=== PATIENT | male | born 1975 | race Two or more races ===

== ENCOUNTER 2024-06-21 14:33 | Inpatient (IN) | payer MEDICAID, OTHER ==
[~2024-06-21] VITALS: Ht 170.2 cm; Wt 101.8 kg
[2024-06-21 15:01] LABS: Basophils # (auto) 0 10 ^3/uL (0-0.2); Basophils % (auto) 0.6 % (0.0-2.0); Eosinophils # (auto) 0 10 ^3/uL (0-0.8); Eosinophils % (auto) 0.6 % (0.0-7.0); Hematocrit 43.9 % (41.0-53.0); Hemoglobin 15.5 g/dL (13.5-17.5); Lymphocytes # (auto) 1.8 10 ^3/uL (0.4-5.4); Mean Corpuscular Hgb Conc. 35.3 g/dL (32.0-36.0); Mean Corpuscular Volume 87.9 fL (80.0-100.0); Monocytes # (auto) 0.4 10 ^3/uL (0-1.3); Monocytes % (auto) 6.5 % (0.0-12.0); Neutrophils # (auto) 4.5 10 ^3/uL (1.6-8.6); Neutrophils % (auto) 66.3 % (37.0-80.0); Nucleated Red Blood Cells % 0.1 %; Platelet Count (auto) 173 10^3/uL (140-450); Red Cell Distribution Width 12.9 % (11.8-14.3); White Blood Cell 6.8 10^3/uL (4.4-10.8)
[2024-06-21 15:18] LABS: Chloride 104 mmol/L (98-107); Potassium 3.2 mmol/L (3.5-5.1); Sodium 138 mmol/L (136-145)
[2024-06-21 15:19] LABS: Anion Gap 8 (5-15); Calcium 9.3 mg/dL (8.7-10.4); Carbon Dioxide 26 mmol/L (20-30)
[2024-06-21 15:24] LABS: Blood Urea Nitrogen 8 mg/dL (9-23); Glucose 91 mg/dL (74-106); Lipase 49 U/L (12-53)
[2024-06-21] MEDS: POTASSIUM EFFERVESENT TAB 25 MEQ PO ONE (16:22)
[2024-06-21] MEDS: ASPirin 325 MG TAB PO ONE (16:22)
[2024-06-21] MEDS: NITROGLYCERIN 0.4 MG SL TAB SL ONE (16:27)
[2024-06-22] MEDS ORDERED: ONDANSETRON HCL 4 MG/2 ML VIAL IV PRN (06:45)
[2024-06-22] MEDS ORDERED: MORPHINE SULFATE INJ 2 MG/ml SYRG IV PRN (06:45)
[2024-06-22] MEDS ORDERED: NITROGLYCERIN 0.4 MG SL TAB SL PRN (06:45)
[2024-06-22] MEDS ORDERED: DEXTROSE (50%) 50ML SYRG IV PRN (06:45)
[2024-06-22] MEDS: InsuLIN REG 1unit/0.01ml Soln (100units/ml) SC SCH (07:00)
[2024-06-22] MEDS: ACCU-CHEK COMFORT CURVE STRIP VI SCH (07:16)
[2024-06-22 07:24] LABS: Chloride 105 mmol/L (98-107); Sodium 140 mmol/L (136-145)
[2024-06-22 07:25] LABS: Anion Gap 5 (5-15); Carbon Dioxide 30 mmol/L (20-30)
[2024-06-22 07:26] LABS: Calcium 9.2 mg/dL (8.7-10.4)
[2024-06-22 07:30] LABS: Glucose 116 mg/dL (74-106)
[2024-06-22 07:31] LABS: BUN/Creatinine Ratio 11.5 (10.0-20.0); Blood Urea Nitrogen 10 mg/dL (9-23)
[2024-06-22 08:19] VITALS: RESP 10; O2SAT 96
[2024-06-22 09:04] LABS: Magnesium 2.2 mg/dL (1.6-2.6)
[2024-06-22 09:30] VITALS: PULSE 68; RESP 20; O2SAT 98
[2024-06-22] MEDS ORDERED: METF-370 PO (09:41)
[2024-06-22] MEDS ORDERED: AMLO1TAB22 PO (09:41)
[2024-06-22] MEDS ORDERED: CHOL20002 PO (09:41)
[2024-06-22] MEDS ORDERED: DULO1CAP5 PO (09:41)
[2024-06-22] MEDS ORDERED: METO25TA93 PO (09:41)
[2024-06-22] MEDS ORDERED: ASPI1CHW5 PO (09:41)
[2024-06-22] MEDS ORDERED: ATOR40TA52 PO (09:41)
[2024-06-22] MEDS: amLODIPine BESYLATE 5 MG TAB PO SCH (10:01)
[2024-06-22] MEDS: DULoxetine HCL 30 MG CAP PO SCH (10:01)
[2024-06-22] MEDS: METOPROLOL SUCCINATE XL 50 MG TAB PO SCH (10:02)
[2024-06-22 13:00] VITALS: BP 142/91; PULSE 71; RESP 18; TEMP 98.4; O2SAT 97
[2024-06-22 16:43] VITALS: BP 126/86; PULSE 68; RESP 18; TEMP 98.7; O2SAT 96
[2024-06-22 20:00] VITALS: PULSE 67; RESP 18; O2SAT 95
[2024-06-22] MEDS: ACETAMINOPHEN 325 MG TAB PO PRN (20:36)
[2024-06-22 21:00] VITALS: BP 133/77; PULSE 67; RESP 18; TEMP 98.4; O2SAT 95
[2024-06-22] MEDS: ATORVASTATIN 20 MG TAB PO SCH (22:11)
[2024-06-23] VITALS (7 sets, daily range): BP systolic 103–130; BP diastolic 57–83; PULSE 55–72; RESP 17–19; TEMP 97.6–98.9; O2SAT 96–97
[2024-06-23] MEDS: ADENOSINE 86 MG in GIVE UN-DILUTED 0 ML IV STA (09:13)
[2024-06-23] MEDS: ASPirin 81 mg TAB PO SCH (10:05)
== END 2024-06-23 19:43 | disposition home or self-care (01) | DRG 203 ==
LOC: ER 14:33 → TELE 06-22 06:38 → TELE-E-ADS 06-22 08:39
PROVIDERS: ADMIT Nurse Practitioner; ATTEND Nurse Practitioner Acute Care
DX: R07.9 Chest pain, unspecified (principal); E11.9 Type 2 diabetes mellitus without complications; E66.9 Obesity, unspecified; E78.5 Hyperlipidemia, unspecified; F17.200 Nicotine dependence, unspecified, uncomplicated; I10 Essential (primary) hypertension; Z79.84 Long term (current) use of oral hypoglycemic drugs; Z83.3 Family history of diabetes mellitus; Z90.49 Acquired absence of other specified parts of digestive tract; Z79.82 Long term (current) use of aspirin; Z79.899 Other long term (current) drug therapy; Z68.34 Body mass index [BMI] 34.0-34.9, adult
CPT/HCPCS: 36415; 71046; 78452; 80048; 80061; 82962; 83036; 83690; 83735; 84443; 84484; 85025; 93005; 93017; 93306; 99291; G0378; J0153; J1815

== ENCOUNTER 2025-01-19 07:35 | Emergency (ER) | payer MEDICAID ==
[~2025-01-19] VITALS: Ht 170.2 cm; Wt 96.0 kg
[~2025-01-19 07:35] MED LIST: AMLO1TAB22 PO; ASPI1CHW5 PO; ATOR40TA52 PO; CHOL20002 PO; DULO1CAP5 PO; METF-370 PO; METO25TA93 PO
--- NOTE | 2025-01-19 07:47 | ED.PDOC ---
History of Present Illness HPI Comments 49 y/o M, with PMHX of HTN, HLD, and DM presents to the ED for CC of left sided weakness. Patient states, that he has been experiencing left sided arm and leg weakness with associated shortness of breath since 0300 this morning (01/19/25). Patient relays, new onset symptoms of nausea, headache, and chest pain upon arrival to the ED. Patient complains of current 7/10 chest pain. Patient comments on, believing he passed out but cannot recall events. Patient denies fatigue, head injury, dizziness, vomiting, or diarrhea. No other associated symptoms, modifiers, recent injuries or sick contacts at this time. Chief Complaint: Left Sided Weakness Time Seen by MD: 07:46 Primary Care Provider: KATY Reviewed Notes: Nurses Notes, Medications, Allergies Allergies: Coded Allergies: NO KNOWN ALLERGIES (Unverified , 06/21/24) Home Meds Reported Medications Cholecalciferol (VITAMIN D3) 2,000 Unit Tab, 1 CAP PO DAILY 06/22/24 Duloxetine HCl (Duloxetine HCl) 30 Mg Cap, 1 CAP PO DAILY 06/22/24 Metformin Hydrochloride (Metformin Hcl) 500 Mg Tab, 1 TAB PO BID 06/22/24 Aspirin (Chewable Aspirin) 81 Mg Chw, 1 TAB PO DAILY 06/22/24 Metoprolol Succinate (Metoprolol Succinate Er) 25 Mg Tab, 1 TAB PO DAILY 06/22/24 Atorvastatin Calcium (ATORVASTATIN CALCIUM) 40 Mg Tab, 1 TAB PO 06/22/24 Amlodipine Besylate (Amlodipine Besylate) 5 Mg Tab, 1 TAB PO DAILY 06/22/24 Information Source: Patient Mode of Arrival: Ambulatory Severity: Moderate Timing: Hours Duration: Since onset Prehospital treatment: None Past Medical History PAST MEDICAL HISTORY: DM, High Lipids, HTN Surgical History: Appendectomy Family History Family History: Reviewed,noncontributory to illness Social History Smoker: Cigarettes Alcohol: Occasionally Drugs: Denies Drug Use Lives In: Home Constitutional: reports: weakness; denies: chills, diaphoresis, fatigue, fever, malaise, sweats, others EENTM: denies: blurred vision, double vision, ear bleeding, ear discharge, ear drainage, ear pain, ear ringing, eye pain, eye redness, hearing loss, mouth pain, mouth swelling, nasal discharge, nose bleeding, nose congestion, nose ya n, photophobia, tearing, throat pain, throat swelling, voice changes, others Respiratory: denies: cough, hemoptysis, orthopnea, SOB at rest, shortness of breath, SOB with excertion, stridor, wheezing, others Cardiovascular: reports: chest pain, left arm pain; denies: dizzy spells, diaphoresis, Dyspnea on exertion, edema, irregular heart beat, lightheadedness, palpitations, PND, syncope, others Gastrointestinal: reports: nausea; denies: abdomen distended, abdominal pain, blood streaked bowels, constipated, diarrhea, dysphagia, difficulty swallowing, hematemesis, melena, poor appetite, poor fluid intake, rectal bleeding, rectal pain, vomiting, others Genitourinary: denies: burning, dysuria, flank pain, frequency, hematuria, incontinence, penile discharge, penile sore, pain, testicle pain, testicle swelling, urgency, others Neurological: reports: headache; denies: dizziness, fainting, left sided numbness, left sided weakness, numbness, paresthesia, pre-existing deficit, right sided numbness, right sided weakness, seizure, speech problems, tingling, tremors, weakness, others Musculoskeletal: denies: back pain, gout, joint pain, joint swelling, muscle pain, muscle stiffness, neck pain, others Integumetry: denies: bruises, change in color, change in hair/nails, dryness, laceration, lesions, lumps, rash, wounds, others Allergic/Immunocompromised: denies: Difficulty Healing, Frequent Infections, Hives, Itching, others Hematologic/Lymphatic: denies: anemia, blood clots, easy bleeding, easy brui sing, swollen glands, others Endocrine: denies: excessive hunger, excessive sweating, excessive thirst, ex cessive urination, flushing, intolerance to cold, intolerance to heat, unexplained weight gain, unexplained weight loss, others Psychiatric: denies: anxiety, bipolar disorder, depression, hopeless, panic disorder, schizophrenia, sleepless, suicidal, others All Other Systems: Reviewed and Negative Physical Exam General Appearance: Moderate Distress HEENT: Normal ENT Inspection, Pharynx Normal, TMs Normal Neck: Full Range of Motion, Non-Tender, Normal, Normal Inspection Respiratory: Chest Non-Tender, Lungs Clear, No Accessory Muscle Use, No Respiratory Distress, Normal Breath Sounds Cardiovascular: No Edema, No JVD, No Murmur, No Gallop, Normal Peripheral Pulses, Regular Rate/Rhythm Breast Exam: Deferred Gastrointestinal: No Organomegaly, Non Tender, No Pulsatile Mass, Normal Bowel Sounds, Soft Genitalia: Deferred Pelvic: Deferred Rectal: Deferred Extremities: No calf tenderness, Normal capillary refill, Normal inspection, Normal range of motion, Non-tender, No pedal edema Musculoskeletal : Apperance: Normal Neurologic: Alert, billet shearer II-XII nml as Tested, No Motor Deficits, Normal Affect, Normal Mood, No Sensory Deficits Cerebellar Function: Normal Reflexes: Normal Skin: Dry, Normal Color, Warm Peripheral Pulses: 3+ Radial (R), 3+ Radial (L) Lymphatic: No Adenopathy Was a procedure done? Was a procedure done?: No Differential Dx Considerations may include: TIA Electrolyte imbalance X-Ray, Labs, Meds, VS Vital Signs Date Time Temp Pulse Resp B/P (MAP) Pulse Ox O2 Delivery O2 Flow Rate FiO2 01/19/25 12:00 98.3 69 14 132/89 (103) 98.3 01/19/25 11:00 68 13 144/65 (91) 01/19/25 10:36 66 15 126/82 01/19/25 10:00 80 15 128/84 (99) 94 01/19/25 09:37 81 12 133/85 01/19/25 08:30 98.5 98.5 01/19/25 08:30 80 15 128/84 (99) 94 01/19/25 08:15 79 17 95 Room Air* 0 21 01/19/25 08:00 133/85 01/19/25 07:48 98.1 92 17 141/115 (124) 99 98.1 01/19/25 07:46 110 Lab Test 01/19/25 11:07 01/19/25 11:00 01/19/25 08:55 01/19/25 08:03 Range/Units Troponin I High Sensitivity 4 4 5 </=54 ng/L Urine Color Light-yellow Yellow Urine Clarity Clear Clear Urine pH 7.0 5.0-9.0 Urine Specific [place] 1.038 H 1.001-1.035 Urine Protein Negative Negative Urine Ketones Negative Negative Urine Blood Negative Negative /uL Urine Nitrite Negative Negative Urine Bilirubin Negative Negative Urine Urobilinogen Normal Negative mg/dL Urine Leukocyte Esterase Negative Negative /uL Urine RBC 2 0 - 3 /hpf Urine Microscopic WBC 1 0-3 /HPF Urine Squamous Epithelial Cells Few <5 /hpf Urine Bacteria None seen None Seen /hpf Urine Glucose Normal Normal mg/dL White Blood Count 7.9 4.4-10.8 10^3/uL Red Blood Count 5.37 4.5-5.90 10^6/uL Hemoglobin 16.4 13.5-17.5 g/dL Hematocrit 47.5 41.0-53.0 % Mean Corpuscular Volume 88.4 80.0-100.0 fL Mean Corpuscular Hemoglobin 30.6 28.0-32.0 pg Mean Corpuscular Hemoglobin Concent 34.6 32.0-36.0 g/dL Red Cell Distribution Width 13.3 11.8-14.3 % Platelet Count 176 140-450 10^3/uL Mean Platelet Volume 9.2 6.9-10.8 fL Neutrophils (%) (Auto) 73.7 37.0-80.0 % Lymphocytes (%) (Auto) 18.6 10.0-50.0 % Monocytes (%) (Auto) 6.7 0.0-12.0 % Eosinophils (%) (Auto) 0.7 0.0-7.0 % Basophils (%) (Auto) 0.3 0.0-2.0 % Neutrophils # (Auto) 5.8 1.6-8.6 10 ^3/uL Lymphocytes # (Auto) 1.5 0.4-5.4 10 ^3/uL Monocytes # (Auto) 0.5 0-1.3 10 ^3/uL Eosinophils # (Auto) 0.1 0-0.8 10 ^3/uL Basophils # (Auto) 0 0-0.2 10 ^3/uL Nucleated Red Blood Cells 0.2 % Sodium Level 139 136-145 mmol/L Potassium Level 3.3 L 3.5-5.1 mmol/L Chloride Level 102 98-107 mmol/L Carbon Dioxide Level 27 20-31 mmol/L Anion Gap 10 5-15 Blood Urea Nitrogen 9 9-23 mg/dL Creatinine 0.91 0.700-1.30 mg/dL Glomerular Filtration Rate Calc 103 >90 mL/min BUN/Creatinine Ratio 9.9 L 10.0-20.0 Serum Glucose 148 H 74-106 mg/dL Calcium Level 9.8 8.7-10.4 mg/dL Test 01/19/25 07:39 Range/Units POC Glucose 143 H 70-106 mg/dl Current Medications Medications (Trade) Dose Ordered Sig/Gerardo Route Start Time Stop Time Status Last Admin Sodium Chloride 1,000 ml @ 150 mls/hr Q6H40M ONCE IV 01/19/25 08:00 01/19/25 13:19 DC 01/19/25 09:39 Morphine Sulfate 4 mg ONCE ONCE IV 01/19/25 08:00 01/19/25 08:01 DC 01/19/25 09:37 Ondansetron HCl (Zofran) 4 mg ONCE ONCE IV 01/19/25 08:00 01/19/25 08:01 DC 01/19/25 09:36 [place] [id number] Ph: [phone] DIAGNOSTIC IMAGING Diagnostic Imaging Report : [id number] Signed PATIENT: SUSHMA BROCT: [id number] UNIT: [id number] : 1975 LOC: ER ROOM / BED: / AGE / SEX: 49 / M ADM STATUS: REG ER SERVICE ORDERING PHYSICIAN: PETER GONZALEZ MD PROCEDURE(s): CXRP - CHEST PORTABLE REASON: sob ORDER NUMBER(s): [id number], ACCESSION NUMBER(s): [id number] EXAM: XY CHEST PORTABLE Indication: sob Technique: Single frontal view of the chest was obtained Comparison: None FINDINGS: Lines and Tubes: None Lungs: No focal consolidation. Pleura: No effusion. No pneumothorax. Cardiomediastinal contours: Unremarkable Bones: No acute osseous abnormality. IMPRESSION: No acute cardiopulmonary disease. ATED BY: KAILEE BRYAN MD DICTATED DATE/TIME: 01/19/25819 SIGNED BY: KAILEE BRYAN MD SIGNED DATE/TIME: 01/19/25819 CC: [place] [id number] Ph: [phone] DIAGNOSTIC IMAGING Diagnostic Imaging Report : [id number] Signed PATIENT: JENNIFER BRO: [id number] UNIT: [id number] : 1975 LOC: ER ROOM / BED: / AGE / SEX: 49 / M ADM STATUS: REG ER SERVICE ORDERING PHYSICIAN: PETER GONZALEZ MD PROCEDURE(s): CTH - STROKE CTH REASON: tia ORDER NUMBER(s): [id number], ACCESSION NUMBER(s): [id number] CLINICAL INFORMATION: Transient ischemic attack. TECHNIQUE: Axial imaging was obtained through the brain without contrast. Coronal and sagittal reformatted images were obtained, reviewed, and stored. Images were reviewed in brain and bone windows. All CT scans at this medical facility are performed using dose modulation techniques as appropriate to a performed exam including the following: Automated exposure control was utilized; adjustment of the MA and/or KV according to patient size; and use of iterative reconstruction technique. CTDIvol = 69.49 mGy DLP = 1368.97 mGy-cm COMPARISON: None FINDINGS: There is no acute intracranial hemorrhage. There is a vascular structure coursing through the amilcar caudal aspect of the midbrain, possible vascular malformation. No mass effect or midline shift. The ventricles and sulci are within normal limits in size for age. Basal cisterns are patent. The calvarium is unremarkable. Paranasal sinuses and mastoid air cells are clear. IMPRESSION: 1. Vascular structure coursing through the amilcar and caudal aspect of the midbrain, possible vascular malformation. Correlate with clinical findings. MRI recommended to further evaluate. CTA may also be helpful to better characterize this finding 2. Otherwise, no CT evidence of acute intracranial abnormality. Critical findings Critical Result: Stroke Alert, possible vacular malformation Findings discussed with the scrap char[employer] by Dr. Ibrahim by phone, at 01/19/2025 10:26 AM CDT, and acknowledged receipt and understanding of the findings. .. ATED BY: CHAD IBRAHIM DO DICTATED DATE/TIME: 01/19/25826 SIGNED BY: CHAD IBRAHIM DO SIGNED DATE/TIME: 01/19/25826 CC: Patient alert. Complaining of numbness tingling headache dizziness. He also has chest discomfort. Vitals stable. Answering all questions. Blood pressure elevated. Blood sugar elevated. Has risk factors for coronary artery disease. Possible TIA. Reviewed his history. Explained to the patient. Continue cardiac monitoring. EKG reviewed does not show any acute changes. Time of 1ST Reevaluation: 08:16 Reevaluation 1ST: Unchanged Patient Education/Counseling: Diagnosis, Treatment Family Education/Counseling: No Family Present Departure 1 Departure Time of Disposition: 07:57 Impression: Primary Impression: TIA (transient ischemic attack) Additional Impressions: Hypertensive emergency Uncontrolled diabetes mellitus Qualified Codes: E13.65 - Other specified diabetes mellitus with hyperglycemia Chest pain of unknown etiology Disposition: ADMITTED INPATIENT Admit to: Med Surg Condition: Guarded Critical Care Note Critical Care Time?: Yes (90 min-critical care time only) Critical care comment: Continue monitoring chest pain neurological status Stability Stability form required: No Heart Score Heart Score: Heart Score Response (Comments) Value History Slightly Suspicious 0 EKG Normal 0 Age 45-64 1 Risk Factors >3 or Hx ASHD 2 Troponin Normal limit 0 Total 3 I personally scribed for PETER GONZALEZ MD ([email or web address]) on 01/19/25 at 07:47. Electronically submitted by Kamila Velásquez ([email or web address]). I personally scribed for PETER GONZALEZ MD ([email or web address]) on 01/19/25 at 07:54. Electronically submitted by Kamila Velásquez ([email or web address]). I personally scribed for PETER GONZALEZ MD ([email or web address]) on 01/19/25 at 08:27. Electronically submitted by Kamila Velásquez ([email or web address]). I personally scribed for PETER GONZALEZ MD ([email or web address]) on 01/19/25 at 09:05. Electronically submitted by Kamila Velásquez ([email or web address]). PETER GONZALEZ MD Jan 19, 2025 07:47
[2025-01-19] MEDS: cloNIDine HCL 0.1 MG TAB PO ONE (08:00)
[2025-01-19 08:15] VITALS: PULSE 79; RESP 17; O2SAT 95
--- NOTE | 2025-01-19 08:23 | DVH ---
EXAM: XY CHEST PORTABLE Indication: sob Technique: Single frontal view of the chest was obtained Comparison: None FINDINGS: Lines and Tubes: None Lungs: No focal consolidation. Pleura: No effusion. No pneumothorax. Cardiomediastinal contours: Unremarkable Bones: No acute osseous abnormality. IMPRESSION: No acute cardiopulmonary disease.
[2025-01-19 08:25] LABS: Basophils # (auto) 0 10 ^3/uL (0-0.2); Basophils % (auto) 0.3 % (0.0-2.0); Eosinophils # (auto) 0.1 10 ^3/uL (0-0.8); Eosinophils % (auto) 0.7 % (0.0-7.0); Hematocrit 47.5 % (41.0-53.0); Hemoglobin 16.4 g/dL (13.5-17.5); Lymphocytes # (auto) 1.5 10 ^3/uL (0.4-5.4); Lymphocytes % (auto) 18.6 % (10.0-50.0); Mean Corpuscular Hemoglobin 30.6 pg (28.0-32.0); Mean Corpuscular Hgb Conc. 34.6 g/dL (32.0-36.0); Mean Corpuscular Volume 88.4 fL (80.0-100.0); Monocytes # (auto) 0.5 10 ^3/uL (0-1.3); Monocytes % (auto) 6.7 % (0.0-12.0); Neutrophils # (auto) 5.8 10 ^3/uL (1.6-8.6); Neutrophils % (auto) 73.7 % (37.0-80.0); Nucleated Red Blood Cells % 0.2 %; Platelet Count (auto) 176 10^3/uL (140-450); Red Blood Cells 5.37 10^6/uL (4.5-5.90); Red Cell Distribution Width 13.3 % (11.8-14.3); White Blood Cell 7.9 10^3/uL (4.4-10.8)
--- NOTE | 2025-01-19 08:29 | DVH ---
CLINICAL INFORMATION: Transient ischemic attack. TECHNIQUE: Axial imaging was obtained through the brain without contrast. Coronal and sagittal reform atted images were obtained, reviewed, and stored. Images were reviewed in brain and bone windows. Al l CT scans at this medical facility are performed using dose modulation techniques as appropriate to a performed exam including the following: Automated exposure control was utilized; adjustment of the MA and/or KV according to patient size; and use of iterative reconstruction technique. CTDIvol = 69.4 9 mGy DLP = 1368.97 mGy-cm COMPARISON: None FINDINGS: There is no acute intracranial hemorrhage. There is a vascular structure coursing through t he amilcar caudal aspect of the midbrain, possible vascular malformation. No mass effect or midline shif t. The ventricles and sulci are within normal limits in size for age. Basal cisterns are patent. The calvarium is unremarkable. Paranasal sinuses and mastoid air cells are clear. IMPRESSION: 1. Vascular structure coursing through the amilcar and caudal aspect of the midbrain, possible vascular malformation. Correlate with clinical findings. MRI recommended to further evaluate. CTA may also be helpful to better characterize this finding 2. Otherwise, no CT evidence of acute intracranial abnormality. Critical findings Critical Result: Stroke Alert, possible vacular malformation Findings discussed with the battery [employer]ger [employer] by Dr. Ibrahim by phone, at 01/19/2025 10:26 AM CDT, and acknowledged receipt and understanding of the findings. ..
[2025-01-19 08:32] LABS: Chloride 102 mmol/L (98-107); Sodium 139 mmol/L (136-145)
[2025-01-19 08:34] LABS: Anion Gap 10 (5-15); Calcium 9.8 mg/dL (8.7-10.4); Carbon Dioxide 27 mmol/L (20-31); Potassium 3.3 mmol/L (3.5-5.1)
[2025-01-19 08:38] LABS: BUN/Creatinine Ratio 9.9 (10.0-20.0); Blood Urea Nitrogen 9 mg/dL (9-23)
[2025-01-19 08:39] LABS: Glucose 148 mg/dL (74-106)
[2025-01-19] MEDS: ONDANSETRON HCL 4 MG/2 ML VIAL IV ONE (09:36)
[2025-01-19] MEDS: MORPHINE SULFATE 4 MG/ML SYR/VIAL IV ONE (09:37)
[2025-01-19] MEDS: SODIUM CHLORIDE 0.9% 1,000 ML IV ONE (09:39)
[2025-01-19] MEDS: IOHEXOL 350 MG/ML 100ML IJ ONE (09:43)
[2025-01-19] MEDS: ASPirin 325 MG TAB PO ONE (09:51)
[2025-01-19 10:00] VITALS: O2SAT 94
--- NOTE | 2025-01-19 10:37 | DVH ---
Procedure: CT ANGIO HEAD/Neck HISTORY: stroke, AVM Comparison Study: CT head 01/19/2025. Exam Date:01/19/2025 10:02 AM TECHNIQUE: CTA head without and with intravenous contrast. CTA neck with intravenous contrast. 3D [employer] postprocessing was performed and images were used for interpretation and reporting. 100 cc of Omni paque 300 contrast was injected intravenously. All CT scans at this medical facility are performed using dose modulation techniques as appropriate t o a performed exam including the following: Automated exposure control was utilized; adjustment of th e MA and/or KV according to patient size; and use of iterative reconstruction technique. Radiation Dose : CT Dose: CTDI volume is 22 mGy. Dose-length product is 900 mGy*cm FINDINGS: CTA head: The visualized distal internal carotid, anterior and middle cerebral arteries demonstrate normal [place] without hemodynamically significant stenosis or occlusion. The vertebral, basilar, and posterior cerebral arteries also demonstrate normal caliber without hemod ynamically significant stenosis or occlusion. There is a vascular structure which courses through the amilcar and communicates with small perforating branches in the cerebellum and a vessel coursing along the lateral margins of the left amilcar. There is no evidence of intracranial arterial aneurysm. The early parenchymal enhancement is grossly unremarkable. There is no hydrocephalus or extra-axial f luid collection. CTA neck: The visualized thoracic aortic arch and proximal great vessels are unremarkable. The bilateral common, internal and external carotid arteries are patent without hemodynamically signi ficant stenosis. The cervical segments of the right and left vertebral arteries are patent without flow-limiting steno sis or obvious dissection.. Neck soft tissues appear within normal limits. Lung apices are clear. There is no acute osseous abnor mality. IMPRESSION: 1. No hemodynamically significant stenosis, proximal occlusion or aneurysm in the intracranial arteri es. 2. No hemodynamically significant stenosis in the cervical segments of the carotid and vertebral tyson preeti. 3. Nonspecific vascular structure coursing through the amilcar and communicating with small perforating branches in the cerebellum and a vessel coursing along the lateral margins of the left amilcar. This may represent a aberrant vessel or vascular malformation. HS:Y
[2025-01-19 11:44] LABS: Urine Blood Negative /uL (Negative); Urine Clarity Clear (Clear); Urine Color Light-Yellow (Yellow); Urine Protein, UAD Negative (Negative); Urine Specific Gravity 1.038 (1.001-1.035); Urine Squamous Epithelial Cell FEW /hpf (<5); Urine Urobilinogen Normal (Negative); Urine WBC 1 /HPF (0-3)
[2025-01-19 12:00] VITALS: BP 132/89; PULSE 69; RESP 14; TEMP 98.3
[2025-01-19 12:15] LABS: Urine Bacteria None Seen /hpf (None Seen)
== END 2025-01-19 12:47 | disposition left against medical advice (07) ==
LOC: ER 07:35
DX: G45.9 Transient cerebral ischemic attack, unspecified (principal); I16.1 Hypertensive emergency; E11.65 Type 2 diabetes mellitus with hyperglycemia; E78.5 Hyperlipidemia, unspecified; F17.210 Nicotine dependence, cigarettes, uncomplicated; Z90.49 Acquired absence of other specified parts of digestive tract; Z79.82 Long term (current) use of aspirin; Z79.84 Long term (current) use of oral hypoglycemic drugs; Z79.899 Other long term (current) drug therapy
CPT/HCPCS: 36415; 70450; 70496; 70498; 71045; 80048; 81001; 82962; 84484; 85025; 96361; 96374; 96375; 99291; 99292; J2270; J2405; J7030; Q9967

== ENCOUNTER 2025-03-01 11:51 | Emergency (ER) | payer MEDICAID ==
[~2025-03-01] VITALS: Ht 170.2 cm; Wt 95.9 kg
[2025-03-01 12:06] VITALS: BP 156/92; PULSE 107; RESP 20; TEMP 99.5; O2SAT 96
== END 2025-03-01 15:34 | disposition left against medical advice (07) ==
LOC: ER 11:51
DX: Z48.00 Encounter for change or removal of nonsurgical wound dressing (principal); Z53.21 Procedure and treatment not carried out due to patient leaving prior to being seen by health care provider

== ENCOUNTER 2025-03-10 04:33 | Emergency (ER) | payer MEDICAID ==
[~2025-03-10] VITALS: Ht 170.2 cm; Wt 90.9 kg
--- NOTE | 2025-03-10 05:09 | ED.PDOC ---
History of Present Illness HPI Comments 50 y/o obese M, with a history of DM, HLD, HTN, and tobacco abuse, presents with c/o shortness of breath, left-arm numbness and tingling, and dizziness. Patient is a Yi speaker. Upon arrival to ED triage, patient had a sudden syncopal episode with fall and injury, that was witnessed by ED staff. At time of assessment after coming-to and being placed on a gurney, patient comments on having no recollection of passing out. Endorses no further additional symptoms along with any recent significant event, such as previous injuries, sick contact, or travel. Chief Complaint: Shortness of Breath Time Seen by MD: 04:40 Primary Care Provider: FrederickOA Reviewed Notes: Nurses Notes, Medications, Allergies Allergies: Coded Allergies: NO KNOWN ALLERGIES (Unverified , 06/21/24) Home Meds Reported Medications Cholecalciferol (VITAMIN D3) 2,000 Unit Tab, 1 CAP PO DAILY 06/22/24 Duloxetine HCl (Duloxetine HCl) 30 Mg Cap, 1 CAP PO DAILY 06/22/24 Metformin Hydrochloride (Metformin Hcl) 500 Mg Tab, 1 TAB PO BID 06/22/24 Aspirin (Chewable Aspirin) 81 Mg Chw, 1 TAB PO DAILY 06/22/24 Metoprolol Succinate (Metoprolol Succinate Er) 25 Mg Tab, 1 TAB PO DAILY 06/22/24 Atorvastatin Calcium (ATORVASTATIN CALCIUM) 40 Mg Tab, 1 TAB PO 06/22/24 Amlodipine Besylate (Amlodipine Besylate) 5 Mg Tab, 1 TAB PO DAILY 06/22/24 Past Medical History PAST MEDICAL HISTORY: DM, High Lipids, HTN Surgical History: Appendectomy Family History Family History: Reviewed,noncontributory to illness Social History Smoker: Cigarettes Alcohol: Occasionally Drugs: Denies Drug Use Lives In: Home All Other Systems: Reviewed and Negative (Comprehensive systems review obtained and negative except for what is stated in the HPI.) Physical Exam General Appearance: Mild Distress, Obese HEENT: Normal ENT Inspection, Pharynx Normal, TMs Normal Neck: Full Range of Motion, Non-Tender, Normal, Normal Inspection Respiratory: Chest Non-Tender, Lungs Clear, No Accessory Muscle Use, No Respiratory Distress, Normal Breath Sounds Cardiovascular: No Edema, No JVD, No Murmur, No Gallop, Normal Peripheral Pulses, Regular Rate/Rhythm Breast Exam: Deferred Gastrointestinal: No Organomegaly, Non Tender, No Pulsatile Mass, Normal Bowel Sounds, Soft Genitalia: Deferred Pelvic: Deferred Rectal: Deferred Extremities: No calf tenderness, Normal capillary refill, Normal inspection, Normal range of motion, Non-tender, No pedal edema Musculoskeletal : Apperance: Normal Neurologic: Alert, life enrichment specialist II-XII nml as Tested, No Motor Deficits, No Sensory Deficits, Other (anxious affect ) Cerebellar Function: Normal Reflexes: Normal Skin: Dry, Normal Color, Warm Lymphatic: No Adenopathy Was a procedure done? Was a procedure done?: No Differential Dx Considerations may include: Viral syndrome, URI, PNA, MO, PE, ACS, vasovagal response, hypotension, dehydration, electrolyte imbalance, closed head injury, fractures, intracranial bleed, among others X-Ray, Labs, Meds, VS Vital Signs Date Time Temp Pulse Resp B/P (MAP) Pulse Ox O2 Delivery O2 Flow Rate FiO2 03/10/25 04:44 93 03/10/25 04:40 98.6 108 18 136/84 (101) 97 98.6 03/10/25 04:40 97 Room Air* 0 21 Lab Test 03/10/25 05:23 Range/Units White Blood Count Pending Red Blood Count Pending Hemoglobin Pending Hematocrit Pending Mean Corpuscular Volume Pending Mean Corpuscular Hemoglobin Pending Mean Corpuscular Hemoglobin Concent Pending Red Cell Distribution Width Pending Platelet Count Pending Mean Platelet Volume Pending Neutrophils (%) (Auto) Pending Lymphocytes (%) (Auto) Pending Monocytes (%) (Auto) Pending Basophils (%) (Auto) Pending Neutrophils # (Auto) Pending Lymphocytes # (Auto) Pending Monocytes # (Auto) Pending Sodium Level 140 136-145 mmol/L Potassium Level 2.7 L 3.5-5.1 mmol/L Chloride Level 106 98-107 mmol/L Carbon Dioxide Level 26 20-31 mmol/L Anion Gap 8 5-15 Blood Urea Nitrogen 6 L 9-23 mg/dL Creatinine 0.74 0.700-1.30 mg/dL Glomerular Filtration Rate Calc 110 >90 mL/min BUN/Creatinine Ratio 8.1 L 10.0-20.0 Serum Glucose 110 H 74-106 mg/dL Calcium Level 8.8 8.7-10.4 mg/dL Total Bilirubin 0.6 0.2-1.0 mg/dL Aspartate Amino Transferase (AST) 13 13-40 U/L Alanine Aminotransferase (ALT) 20 7-40 U/L Alkaline Phosphatase 82 46-116 U/L Troponin I High Sensitivity 11 </=54 ng/L Total Protein 6.7 5.7-8.2 g/dL Albumin 4.4 3.2-4.8 g/dL [place] [id number] Ph: [phone] DIAGNOSTIC IMAGING Diagnostic Imaging Report : [id number] Signed PATIENT: JEREMY BRO ACCT: [id number] UNIT: [id number] : 1975 LOC: ER ROOM / BED: / AGE / SEX: 50 / M ADM STATUS: REG ER SERVICE [id number] ORDERING PHYSICIAN: SWATI SO MD PROCEDURE(s): HWOCT - HEAD WITHOUT CONTRAST REASON: SYNCOPE paresthesia ORDER NUMBER(s): [id number], ACCESSION NUMBER(s): [id number] EXAM: CT HEAD WITHOUT CONTRAST INDICATION: SYNCOPE paresthesia TECHNIQUE: CT of the head without intravenous contrast. Radiation Dose : 1. Head: CT Dose: CTDI volume is 67 mGy. Dose-length product is 2141 mGy*cm The dose indicators for CT are the volume Computed Tomography (CT) Dose Index (CTDIvol) and the Dose Length Product (DLP), and are measured in units of mGy and mGy-cm, respectively. These indicators are not patient dose, but values generated from the CT scanner acquisition factors. The report includes radiation exposure data for exposures received during this examination. COMPARISON: CT STROKE CTH on DOS: 01/19/25 FINDINGS: There is no evidence of acute intracranial hemorrhage, extra-axial collection, mass effect, midline shift, herniation or hydrocephalus. The ventricles, sulci and cisterns are age appropriate. The botello-white differentiation is intact. The visualized paranasal sinuses and mastoid air cells are clear. The surrounding soft tissues and osseous structures are unremarkable. IMPRESSION: No acute intracranial abnormality. Radiation optimization: All CT scans at this facility use at least one of these dose optimization techniques: automated exposure control mA and/or kV ad justment per patient size (includes targeted exams where dose is matched to clinical indication) or iterative reconstruction. ATED BY: ANDREY CUEVAS MD DICTATED DATE/TIME: 03/10/25526 SIGNED BY: ANDREY CUEVAS MD SIGNED DATE/TIME: 03/10/25526 CC: [place] [id number] Ph: [phone] DIAGNOSTIC IMAGING Diagnostic Imaging Report : [id number] Signed PATIENT: JEREMY BRO ACCT: [id number] UNIT: [id number] : 1975 LOC: ER ROOM / BED: / AGE / SEX: 50 / M ADM STATUS: REG ER SERVICE 7 ORDERING PHYSICIAN: SWATI SO MD PROCEDURE(s): CXR1 - CHEST XRAY 1 VIEW REASON: SOB ORDER NUMBER(s): [id number], ACCESSION NUMBER(s): [id number] CHEST RADIOGRAPH Indication: SOB Technique: Single frontal view of the chest was obtained COMPARISON: XY CHEST PORTABLE on DOS: 01/19/25 FINDINGS: Lines and Tubes: None Lungs: Mild increased interstitial prominence Pleura: No effusion. No pneumothorax. Cardiomediastinal contours: Unremarkable Bones: Unremarkable IMPRESSION: Pulmonary vascular congestion versus viral pneumonia ATED BY: ANDREY CUEVAS MD DICTATED DATE/TIME: 03/10/25521 SIGNED BY: ANDREY CUEVAS MD SIGNED DATE/TIME: 03/10/25521 CC: Time of 1ST Reevaluation: 05:10 Reevaluation 1ST: Unchanged Patient Education/Counseling: Diagnosis, Treatment Family Education/Counseling: No Family Present Departure 1 Departure Time of Disposition: 06:03 Impression: Primary Impression: Chest pain of unknown etiology Additional Impressions: TIA (transient ischemic attack) Syncope and collapse Disposition: ADMITTED INPATIENT Admit to: Tele Condition: Guarded Discharged With: Self Comments Shortness of Breath, Left Arm Paresthesias, and Syncope Chief Complaint: Shortness of breath, left arm paresthesias, dizziness, and syncope History of Present Illness: 50-year-old male with history of TIA, diabetes, hypertension, and hyperlipidemia presents to the ED with complaints of shortness of breath accompanied by left arm paresthesias and dizziness. While in the triage area, patient experienced a syncopal episode. Given his history of prior TIA and current constellation of symptoms, there is concern for possible acute cerebrovascular event. 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 Diabetes mellitus 2. Hypertension 3. Hyperlipidemia 4. Previous TIA Lab Results: Potassium: 2.7 (Critical low) Imaging and Other Relevant Results: 1. CT Head: No obvious acute pathology 2. Chest X-ray: No obvious acute pathology Medical Decision Making: Summary Statement: 50-year-old male with history of TIA presents with neurological symptoms, syncope, and critical hypokalemia requiring admission. Problem List: 1. Possible TIA 2. Syncope 3. Severe hypokalemia 4. Shortness of breath Differential Diagnosis: 1. Acute TIA/CVA 2. Cardiac arrhythmia secondary to hypokalemia 3. Cardiac ischemia 4. Orthostatic hypotension 5. Vestibular disorder ED Course: Patient experienced syncopal episode in triage. CT head obtained showing no acute findings. Critical hypokalemia identified and potassium replacement initiated. Patient stabilized and admission planned. Assessment and Plan: 1. Possible TIA/Syncope: - Admit to hospital for further evaluation and monitoring - Neurology consultation - Continue current stroke prevention medications 2. Severe Hypokalemia (K+ 2.7): - Initiated potassium replacement - Monitor serial potassium levels - Evaluate underlying cause 3. Cardiovascular Risk Factors: - Continue management of diabetes, hypertension, and hyperlipidemia - Smoking cessation counseling Billing Information: ICD-10: G45.9 - Transient cerebral ischemic attack, unspecified ICD-10: R55 - Syncope and collapse ICD-10: E87.6 - Hypokalemia Critical Care Note Critical Care Time?: No Stability Stability form required: No Heart Score Heart Score: Heart Score Response (Comments) Value History N/A 0 EKG N/A 0 Age N/A 0 Risk Factors N/A 0 Troponin N/A 0 Total 0 I personally scribed for SWATI SO MD ([email or web address]) on 03/10/25 at 05:09. Electronically submitted by Bert Luciano ([email or web address] I personally scribed for SWATI SO MD ([email or web address]) on 03/10/25 at 05:45. Electronically submitted by Bert Luciano [email or web address]). SWATI SO MD March 10, 2025 05:09
[2025-03-10 05:20] VITALS: BP 153/91; PULSE 88; RESP 14; TEMP 98.7; O2SAT 97
--- NOTE | 2025-03-10 05:25 | DVH ---
CHEST RADIOGRAPH Indication: SOB Technique: Single frontal view of the chest was obtained COMPARISON: XY CHEST PORTABLE on DOS: 01/19/25 FINDINGS: Lines and Tubes: None Lungs: Mild increased interstitial prominence Pleura: No effusion. No pneumothorax. Cardiomediastinal contours: Unremarkable Bones: Unremarkable IMPRESSION: Pulmonary vascular congestion versus viral pneumonia
--- NOTE | 2025-03-10 05:29 | DVH ---
EXAM: CT HEAD WITHOUT CONTRAST INDICATION: SYNCOPE paresthesia TECHNIQUE: CT of the head without intravenous contrast. Radiation Dose : 1. Head: CT Dose: CTDI volume is 67 mGy. Dose-length product is 2141 mGy*cm The dose indicators for CT are the volume Computed Tomography (CT) Dose Index (CTDIvol) and the Dose Length Product (DLP), and are measured in units of mGy and mGy-cm, respectively. These indicators are not patient dose, but values generated from the CT scanner acquisition factors. The report includes radiation exposure data for exposures received during this examination. COMPARISON: CT STROKE CTH on DOS: 01/19/25 FINDINGS: There is no evidence of acute intracranial hemorrhage, extra-axial collection, mass effect, midline s hift, herniation or hydrocephalus. The ventricles, sulci and cisterns are age appropriate. The botello-white differentiation is intact. The visualized paranasal sinuses and mastoid air cells are clear. The surrounding soft tissues and osseous structures are unremarkable. IMPRESSION: No acute intracranial abnormality. Radiation optimization: All CT scans at this facility use at least one of these dose optimization magaly hniques: automated exposure control mA and/or kV adjustment per patient size (includes targeted exam s where dose is matched to clinical indication) or iterative reconstruction.
[2025-03-10 05:49] LABS: Alanine Aminotransferase 20 U/L (7-40); Albumin 4.4 g/dL (3.2-4.8); Alkaline Phosphatase 82 U/L (46-116); Anion Gap 8 (5-15); BUN/Creatinine Ratio 8.1 (10.0-20.0); Calcium 8.8 mg/dL (8.7-10.4); Carbon Dioxide 26 mmol/L (20-31); Chloride 106 mmol/L (98-107); Sodium 140 mmol/L (136-145); Total Protein 6.7 g/dL (5.7-8.2)
[2025-03-10 05:50] LABS: Bilirubin, Total 0.6 mg/dL (0.2-1.0)
[2025-03-10 05:59] LABS: Aspartate Aminotransferase 13 U/L (13-40); Blood Urea Nitrogen 6 mg/dL (9-23); Glucose 110 mg/dL (74-106); Potassium 2.7 mmol/L (3.5-5.1)
[2025-03-10 06:12] LABS: Basophils # (auto) 0 10 ^3/uL (0-0.2); Basophils % (auto) 0.4 % (0.0-2.0); Eosinophils # (auto) 0.1 10 ^3/uL (0-0.8); Eosinophils % (auto) 2.1 % (0.0-7.0); Hematocrit 42.6 % (41.0-53.0); Hemoglobin 15.2 g/dL (13.5-17.5); Lymphocytes # (auto) 1.1 10 ^3/uL (0.4-5.4); Lymphocytes % (auto) 20.7 % (10.0-50.0); Mean Corpuscular Hemoglobin 31.5 pg (28.0-32.0); Mean Corpuscular Hgb Conc. 35.7 g/dL (32.0-36.0); Mean Corpuscular Volume 88.5 fL (80.0-100.0); Monocytes # (auto) 0.5 10 ^3/uL (0-1.3); Monocytes % (auto) 8.7 % (0.0-12.0); Neutrophils # (auto) 3.5 10 ^3/uL (1.6-8.6); Neutrophils % (auto) 68.1 % (37.0-80.0); Nucleated Red Blood Cells % 0.1 %; Platelet Count (auto) 139 10^3/uL (140-450); Red Blood Cells 4.82 10^6/uL (4.5-5.90); Red Cell Distribution Width 13.7 % (11.8-14.3); White Blood Cell 5.2 10^3/uL (4.4-10.8)
[2025-03-10] MEDS: POTASSIUM CHL 20 Meq TABLET PO ONE (06:47)
--- NOTE | 2025-03-11 09:50 | ECG ---
[facility] Test Date: 2025-03-10 Test Time: 04:44:56 Pat Name: JEREMY PINEDA Department: ER Room: Gender: M Machine Inspector: DANIEL : 1975 Requested By: SWATI SO Order Number: [id number] Reading MD: Fabiano [place] Measurements Intervals [place] Rate: 93 P: 16 TX: 129 QRS: 28 QRSD: 87 T: 10 QT: 361 QTc: 449 Interpretive Statements Sinus rhythm Electronically Signed On 03-11-2025 13:13:17 PDT by Fabiano [place] Please click the below link to view image of tracing.
== END 2025-03-10 07:26 | disposition left against medical advice (07) ==
LOC: ER 04:33
DX: G45.9 Transient cerebral ischemic attack, unspecified (principal); R07.89 Other chest pain; R55 Syncope and collapse; I10 Essential (primary) hypertension; E11.9 Type 2 diabetes mellitus without complications; E78.5 Hyperlipidemia, unspecified; F17.210 Nicotine dependence, cigarettes, uncomplicated; Z79.82 Long term (current) use of aspirin; Z79.84 Long term (current) use of oral hypoglycemic drugs; Z79.899 Other long term (current) drug therapy; Z90.49 Acquired absence of other specified parts of digestive tract
CPT/HCPCS: 36415; 70450; 71045; 80053; 84484; 85025; 93005